=== PATIENT | male | born 1955 | race Caucasian/White ===

== ENCOUNTER 2017-06-05 10:56 | Inpatient (IN) | payer OTHER, MEDICARE ==
[~2017-06-05] VITALS: Ht 185.4 cm; Wt 99.0 kg
[2017-06-05] MEDS ORDERED: SIMV40TA2 PO (11:19)
[2017-06-05] MEDS ORDERED: ZIPR80CA12 PO (11:19)
[2017-06-05] MEDS ORDERED: GABA-283 PO (11:19)
[2017-06-05] MEDS ORDERED: OXCA300S3 PO (11:19)
[2017-06-05] MEDS ORDERED: BENZ0.5T PO (11:19)
[2017-06-05] MEDS ORDERED: QUET1TAB9 PO (11:19)
[2017-06-05] MEDS ORDERED: QUET1TAB10 PO (11:19)
[2017-06-05] MEDS ORDERED: DOCQ100C PO (11:19)
[2017-06-05 13:13] LABS: MEAN CORPUSCULAR HEMOGLOBIN 31.4 pg (27.0-33.0); MEAN CORPUSCULAR HGB CONC 33.9 g/dl (32.0-36.5); MEAN CORPUSCULAR VOLUME 92.7 fl (80.0-96.0); PLATELET COUNT, AUTOMATED 223 10^3/uL (150-450); WHITE BLOOD COUNT 7.8 10^3/uL (4.0-10.0)
[2017-06-05 13:40] LABS: ALBUMIN/GLOBULIN RATIO 1.11 (1.00-1.93); ALKALINE PHOSPHATASE 97 U/L (45-117); ALT/SGPT 37 U/L (12-78); ANION GAP 3 MEQ/L (8-16); AST/SGOT 26 U/L (7-37); BILIRUBIN,DIRECT 0.2 MG/DL (0.0-0.2); BILIRUBIN,TOTAL 0.4 MG/DL (0.2-1.0); BLOOD UREA NITROGEN 12 MG/DL (7-18); CALCIUM LEVEL 9.4 MG/DL (8.8-10.2); CARBON DIOXIDE LEVEL 32 MEQ/L (21-32); CHLORIDE LEVEL 104 MEQ/L (98-107); CREATININE FOR GFR 0.92 MG/DL (0.70-1.30); GLOMERULAR FILTRATION RATE > 60.0 (>49); GLUCOSE, FASTING 83 MG/DL (80-110); POTASSIUM SERUM 4.3 MEQ/L (3.5-5.1); SODIUM LEVEL 139 MEQ/L (136-145); TOTAL PROTEIN 7.6 GM/DL (6.4-8.2)
[2017-06-05 13:51] LABS: METHADONE URINE NEGATIVE (NEGATIVE)
[2017-06-05] MEDS: ZIPRASIDONE 80 MG CAP (GEODON) PO SCH (18:00)
[2017-06-05 21:09] VITALS: BP_SYST 131
[2017-06-06] MEDS ORDERED: MAALOX 30 ML SUSP *UDC PO PRN (00:45)
[2017-06-06] MEDS ORDERED: LORazepam 0.5 MG TAB PO PRN (00:45)
[2017-06-06] MEDS ORDERED: ACETAMINOPHEN TAB 650MG DOSE (2X325MG) PO PRN (00:45)
[2017-06-06] MEDS ORDERED: MOM 30ML SUSPENSION UDC PO PRN (00:45)
[2017-06-06] MEDS: ZIPRASIDONE 80 MG CAP (GEODON) PO SCH (01:17)
[2017-06-06] MEDS: SIMVASTATIN 20 MG TAB PO SCH ×2 (01:18→20:46)
[2017-06-06] MEDS: DOCUSATE SODIUM 100 MG CAP PO SCH ×3 (01:18→20:45)
[2017-06-06] MEDS: OXcarbazepine 300 MG TAB PO SCH ×3 (01:18→20:46)
[2017-06-06] MEDS: QUEtiapine FUMARATE 100 MG TAB PO SCH ×2 (01:18→20:46)
[2017-06-06] MEDS: BENZTROPINE 0.5 MG TAB PO SCH ×3 (01:18→20:46)
[2017-06-06] MEDS: GABAPENTIN 300 MG CAP PO SCH ×2 (01:18→20:46)
[2017-06-06 06:28] VITALS: BP 113/67
--- NOTE | 2017-06-06 09:00 | HPEPDOC ---
[facility] Medical History & Physical Date of Admission Jun 05, 2017 History and Physical PCP: Dr Wally Bob. ATTENDING: Dr. Yeyo Peña HPI: 61yoM admitted to [facility] for schizophrenia, being medically examined today. Patient verbalizes no acute medical complaints today. He shouldn't states he has chronic low back pain which has been controlled however repeatedly states he is currently sleeping on the "wrong mattress". The patient states he is here from [place] visiting family and has been here one to 2 days. The patient has a difficult time answering questions with rapid and tangential speech. Patient states he takes Trileptal for mood. Denies any fevers, chills, weakness, fatigue, SAGE, CP, SOB, cough, palpitations, abdominal pain, N/V/D or changes in bowel or bladder habits. PMHx: Schizophrenia Anxiety Depression Dyslipidemia Chronic low back pain Chronic constipation PSHX: Tonsillectomy Colonoscopy SOCHX: Resides in: [place] Marital Status: Single Kids: None Employment: Unemployed Tobacco use: Denies ETOH: Denies Illicit Drugs: Denies IV Drug Use: Denies Tattoos done unprofessionally: Denies FAMHX: Mother: , renal failure Father: , unknown Siblings: One brother homicide. One sister uterine cancer Children: None ROS: As noted in HPI, otherwise 11pt ROS of systems reviewed and unremarkable. PE: GEN: 61 yoM, appears stated age. Well-nourished, well developed. No acute distress. Alert and oriented x 3. Rapid, pressured, tangential speech, sexually preoccupied. HEENT: Normocephalic, atraumatic. Pupils are equal, round, and reactive to light. Extraocular movements are intact. No nystagmus appreciated. Sclera are nonicteric. Conjunctiva without injection. Nose midline. Nasal turbinates without bogginess. EACs both patent BL. TMs both visualized and licona with good cone of light, no bulging or erythema. No facial asymmetry. Moist mucous membranes. Wearing dentures. Pharynx pink and moist, no cobblestoning. Neck supple, trachea midline. No lymphadenopathy or thyromegaly appreciated. CHEST: Regular rate and rhythm, +S1, +S2 LUNGS: Clear to auscultation bilaterally. No wheezes, rales, or rhonchi. Breathing appears symmetric and easy. Patient is speaking in full sentences. No accessory muscle use. ABD: Round, soft, non-tender, non-distended. +Bowel sounds throughout. No rebound or guarding. No costovertebral angle tenderness. EXT: Pulses 2+ bilaterally dorsalis pedis and radial. No lower extremity edema appreciated. SKIN: [place], dry, warm. Capillary refill <2sec. No rashes. NEURO: Alert and oriented x 3. Cranial nerves III-XII are intact. No focal deficits appreciated. EKG: pending. A&P: 61yoM admitted to [facility] for schizophrenia 1. Psych. Plan per Psychiatry. Obtain baseline EKG to assure the safety of psychiatric medications as they can prolong the QT interval. 2. Dyslipidemia. Continue Zocor 20 mg daily. 3. Chronic pain/chronic low back pain. Patient states his pain is controlled. Continue gabapentin 300 mg at bedtime. Tylenol 650 mg every 6 hours as needed. 4. Follow up with PCP on discharge. 5. Chronic constipation. Continue Colace 100 mg by mouth daily. 6. Staff member Da present throughout exam. Vital Signs Vital Signs Date Time Temp Pulse Resp B/P (MAP) Pulse Ox O2 Delivery O2 Flow Rate FiO2 06/06/17 06:28 99.9 81 16 113/67 (82) 06/05/17 21:09 94 Room Air Laboratory Data Labs 24H Laboratory Tests 2 06/05/17 12:55: Nucleated Red Blood Cells % (auto) 0.0, Anion Gap 3L, Glomerular Filtration Rate > 60.0, Calcium Level 9.4, Aspartate Amino Transf (AST/SGOT) 26, Alanine Aminotransferase (ALT/SGPT) 37, Alkaline Phosphatase 97, Total Bilirubin 0.4, Direct Bilirubin 0.2, Total Protein 7.6, Albumin 4.0, Albumin/Globulin Ratio 1.11, Thyroid Stimulating Hormone (TSH) 0.869, Salicylates Level < 1.7L, Urine Amphetamines Screen NEGATIVE, Urine Benzodiazepines Screen NEGATIVE, Urine Opiates Screen NEGATIVE, Urine Methadone Screen NEGATIVE, Acetaminophen Level < 2.0L, Urine Barbiturates Screen NEGATIVE, Urine Phencyclidine Screen NEGATIVE, Urine Cocaine Metabolite Screen NEGATIVE, Urine Cannabinoids Screen NEGATIVE, Ethyl Alcohol Level < 0.003 CBC/BMP Laboratory Tests 06/05/17 12:55 Red Blood Count 5.06, Mean Corpuscular Volume 92.7, Mean Corpuscular Hemoglobin 31.4, Mean Corpuscular Hemoglobin Concent 33.9, Red Cell Distribution Width 13.0 Home Medications Scheduled (Oxcarbazepine) 300 Mg/5 Ml Skyla, 600 MG PO BID for MOOD (Docqlace) 100 Mg Cap, 100 MG PO DAILY Benztropine Mesylate (Benztropine Mesylate) 0.5 Mg Tab, 0.5 MG PO BID Gabapentin (Gabapentin) 400 Mg Cap, 300 MG PO DAILY Quetiapine Fumerate (Quetiapine Fumarate) 300 Mg Tab, 300 MG PO QHS for MOOD Simvastatin - High Dose (Simvastatin) 40 Mg Tab, 20 MG PO DAILY Ziprasidone Hydrochloride (Ziprasidone HCl) 80 Mg Cap, 80 MG PO DAILY Allergies Coded Allergies: No Known Allergies (Unverified , 06/05/17) Yuki Miller Jun 06, 2017 09:00
[2017-06-06 12:01] VITALS: BP 139/76
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
[2017-06-06 18:00] VITALS: BP 145/77
[2017-06-06] MEDS: PALIPERIDONE 3 MG ER TAB (INVEGA) PO SCH (20:46)
[2017-06-07 06:32] VITALS: BP 122/72
[2017-06-07] MEDS: BENZTROPINE 0.5 MG TAB PO SCH ×2 (10:34→20:56)
[2017-06-07] MEDS: PALIPERIDONE 3 MG ER TAB (INVEGA) PO SCH (10:34)
[2017-06-07] MEDS: OXcarbazepine 300 MG TAB PO SCH ×2 (10:34→20:58)
[2017-06-07] MEDS: DOCUSATE SODIUM 100 MG CAP PO SCH ×2 (10:34→20:57)
--- NOTE | 2017-06-07 15:14 | MHIPNPDOC ---
[facility] Progress Note Progress Note DATE OF SERVICE: 06/07/17 HISTORY: Patient reports that he has been having problems with one of his neighbors who is a [place] , who complained to his landlord and he was asked to leave his apartment. VITAL SIGNS: See below. NEW TEST RESULTS: None CURRENT MEDICATIONS: See below. MENTAL STATUS EXAMINATION: General appearance: Patient is a 61-year old male, who is alert, cooperative, with fair eye contact, good hygiene and grooming Speech: A little less tangential than yesterday Thought processes: Disorganized. Thought content: Paranoid delusions and persecutory delusions,. he says the patients are talking about him. Abstract reasoning and computation: Due to altered mental status it was not done at this time. Description of associations: Loose. Description of abnormal or psychotic thoughts: Paranoid and persecutory delusions, denies suicidal ideation, denies homicidal ideation and denies auditory and visual hallucinations. Judgment: Poor. Insight: Poor. Orientation: Oriented 3. Recent and remote memory: Intact. Attention span and concentration: Fair. Fund of knowledge: Not assessed at this time Mood: Anxious Affect: Anxious. DIAGNOSES: 1. Paranoid schizophrenia ASSESSMENT: Patient says he slept well, has good appetite, is slightly less paranoid and suspicious than yesterday. He is still paranoid, he thinks that people hate him and that is why we are giving him medications at day and night, because he receives it twice a day. 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 MANAGEMENT PLAN: Will continue on the same treatment plan. TIME SPENT: 20 minutes. Vital Signs Vital Signs Date Time Temp Pulse Resp B/P (MAP) Pulse Ox O2 Delivery O2 Flow Rate FiO2 06/07/17 06:32 98.3 71 20 122/72 (89) 06/05/17 21:09 94 Room Air Current Medications Current Medications Acetaminophen (Tylenol Tab) 650 mg Q6HP PRN PO HEADACHE or DISCOMFORT; Start 06/06/17 at 00:45; Stop 07/06/17 at 00:44 Al Hydrox/Mg Hydrox/Simethicone (Mylanta) 30 ml Q4HP PRN PO HEARTBURN/ INDIGESTION; Start 06/06/17 at 00:45; Stop 07/06/17 at 00:44 Benztropine Mesylate (Cogentin) 0.5 mg BID PO Last administered on 06/07/17 10 :34; Start 06/05/17 at 21:00; Stop 07/05/17 at 20:59 Docusate Sodium (Colace) 100 mg BID PO Last administered on 06/07/17 10:34; Start 06/05/17 at 21:00; Stop 07/05/17 at 20:59 Gabapentin (Neurontin) 300 mg QHS PO Last administered on 06/06/17 20:46; Start 06/05/17 at 21:00; Stop 07/05/17 at 20:59 Lorazepam (Ativan) 0.5 mg TIDP PRN PO ANXIETY; Start 06/06/17 at 00:45; Stop 06/13/17 at 00:44 Magnesium Hydroxide (Milk Of Magnesia) 30 ml DAILYPRN PRN PO CONSTIPATION; Start 06/06/17 at 00:45; Stop 07/06/17 at 00:44 Oxcarbazepine (Trileptal) 600 mg BID PO Last administered on 06/07/17 10:34; Start 06/05/17 at 21:00; Stop 07/05/17 at 20:59 Paliperidone (Invega) 3 mg BID PO Last administered on 06/07/17 10:34; Start 06/06/17 at 21:00; Stop 07/06/17 at 20:59 Quetiapine Fumarate (SEROquel) 300 mg QHS PO Last administered on 06/06/17 20: 46; Start 06/05/17 at 21:00; Stop 07/05/17 at 20:59 Simvastatin (Zocor) 20 mg QHS PO Last administered on 06/06/17 20:46; Start 06/05/17 at 21:00; Stop 07/05/17 at 20:59 Ziprasidone (Geodon) 80 mg DAILY@18 PO ; Start 06/05/17 at 18:00; Stop 06/06/17 at 15:26; Status DC Allergies Coded Allergies: No Known Allergies (Unverified , 06/05/17) ANIKET KWAN MD Jun 07, 2017 15:14
[2017-06-07 18:00] VITALS: BP 142/70
--- NOTE | 2017-06-07 20:00 | ECGEPIP ---
Stationary ECG Study [facility] Test Date: 2017-06-06 Pat Name: REX SCHULTZ Department: Room: [place] [address] Gender: M Sustainable Design Coordinator: MADDY : 1955 Requested By: Yuki Miller Order Number: [id number] Reading MD: Stevie Schwab Measurements Intervals [place] Rate: 81 P: 63 MO: 164 QRS: 51 QRSD: 112 T: 51 QT: 349 QTc: 407 Interpretive Statements SINUS RHYTHM MODERATE INTRAVENTRICULAR CONDUCTION DELAY NO PRIOR Electronically Signed On 06-07-2017 20:00:07 EST by Stevie Schwab
[2017-06-07] MEDS: QUEtiapine FUMARATE 100 MG TAB PO SCH (20:57)
[2017-06-07] MEDS: SIMVASTATIN 20 MG TAB PO SCH (20:57)
[2017-06-07] MEDS: GABAPENTIN 300 MG CAP PO SCH (20:58)
[2017-06-07] MEDS ORDERED: PALIPERIDONE 6 MG ER TAB (INVEGA) PO SCH (21:00)
[2017-06-08 06:27] VITALS: BP 124/72
[2017-06-08] MEDS: BENZTROPINE 0.5 MG TAB PO SCH ×2 (09:43→21:15)
[2017-06-08] MEDS: OXcarbazepine 300 MG TAB PO SCH ×2 (09:43→21:16)
[2017-06-08] MEDS: DOCUSATE SODIUM 100 MG CAP PO SCH ×2 (09:43→21:16)
[2017-06-08] MEDS ORDERED: PALIPERIDONE 3 MG ER TAB (INVEGA) PO ONE (11:45)
[2017-06-08 18:00] VITALS: BP 133/79
[2017-06-08] MEDS ORDERED: PALIPERIDONE 6 MG ER TAB (INVEGA) PO SCH (21:00)
[2017-06-08] MEDS: QUEtiapine FUMARATE 100 MG TAB PO SCH (21:16)
[2017-06-08] MEDS: SIMVASTATIN 20 MG TAB PO SCH (21:16)
[2017-06-08] MEDS: GABAPENTIN 300 MG CAP PO SCH (21:16)
[2017-06-09 06:29] VITALS: BP 128/78
[2017-06-09] MEDS: PALIPERIDONE 3 MG ER TAB (INVEGA) PO SCH ×2 (08:51→21:11)
[2017-06-09] MEDS: OXcarbazepine 300 MG TAB PO SCH ×2 (08:51→21:11)
[2017-06-09] MEDS: DOCUSATE SODIUM 100 MG CAP PO SCH ×2 (08:51→21:10)
[2017-06-09] MEDS: BENZTROPINE 0.5 MG TAB PO SCH ×2 (08:51→21:11)
--- NOTE | 2017-06-09 12:52 | MHIPNPDOC ---
[facility] Progress Note Progress Note DATE OF SERVICE: 06/08/17 HISTORY: Patient reports that he has been having problems with one of his neighbors who is a [place] , who complained to his landlord and he was asked to leave his apartment. VITAL SIGNS: See below. NEW TEST RESULTS: None CURRENT MEDICATIONS: See below. MENTAL STATUS EXAMINATION: General appearance: Patient is a 61-year old male, alert, cooperative, fairly groomed, with good hygiene and fair eye contact. Speech: Tangential and circumstantial but less than upon admission Thought processes: Disorganized. Thought content: Paranoid delusions and persecutory delusions. Abstract reasoning and computation: Due to altered mental status it was not done at this time. Description of associations: Loose. Description of abnormal or psychotic thoughts: Paranoid and persecutory delusions, denies suicidal ideation, denies homicidal ideation and denies auditory and visual hallucinations. Judgment: Poor. Insight: Poor. Orientation: Oriented 3. Recent and remote memory: Intact. Attention span and concentration: Fair. Fund of knowledge: Not assessed at this time Mood: Anxious Affect: Anxious. DIAGNOSES: 1. Paranoid schizophrenia ASSESSMENT: Patient complained of receiving 6 mg a day and at night but yesterday he complained of receiving it in split doses (3 mg twice a day). Yesterday he said he didn't like it that way, he never used to take medications during the day, only at bedtime. Then, he added that he knew they were doing this to him, giving all his medications at bedtime because people hated him and he knew staff and patients hated him because they were talking bad things about him. Today he complains of receiving everything at bedtime, will order again today at 3 mgs twice a day in order to make him feel safe. MANAGEMENT PLAN: Will continue on the same treatment plan. TIME SPENT: 20 minutes. Vital Signs Vital Signs Date Time Temp Pulse Resp B/P (MAP) Pulse Ox O2 Delivery O2 Flow Rate FiO2 06/09/17 06:29 97.8 70 18 128/78 (95) 06/08/17 06:27 Room Air 06/05/17 21:09 94 Current Medications Current Medications Acetaminophen (Tylenol Tab) 650 mg Q6HP PRN PO HEADACHE or DISCOMFORT; Start 06/06/17 at 00:45; Stop 07/06/17 at 00:44 Al Hydrox/Mg Hydrox/Simethicone (Mylanta) 30 ml Q4HP PRN PO HEARTBURN/ INDIGESTION; Start 06/06/17 at 00:45; Stop 07/06/17 at 00:44 Benztropine Mesylate (Cogentin) 0.5 mg BID PO Last administered on 06/09/17 08:51; Start 06/05/17 at 21:00; Stop 07/05/17 at 20:59 Docusate Sodium (Colace) 100 mg BID PO Last administered on 06/09/17 08:51; Start 06/05/17 at 21:00; Stop 07/05/17 at 20:59 Gabapentin (Neurontin) 300 mg QHS PO Last administered on 06/08/17 21:16; Start 06/05/17 at 21:00; Stop 07/05/17 at 20:59 Lorazepam (Ativan) 0.5 mg TIDP PRN PO ANXIETY; Start 06/06/17 at 00:45; Stop 06/13/17 at 00:44 Magnesium Hydroxide (Milk Of Magnesia) 30 ml DAILYPRN PRN PO CONSTIPATION; Start 06/06/17 at 00:45; Stop 07/06/17 at 00:44 Oxcarbazepine (Trileptal) 600 mg BID PO Last administered on 06/09/17 08:51; Start 06/05/17 at 21:00; Stop 07/05/17 at 20:59 Paliperidone (Invega) 3 mg BID PO Last administered on 06/07/17 10:34; Start 06/06/17 at 21:00; Stop 06/07/17 at 15:17; Status DC Paliperidone (Invega) 3 mg QAM PO Last administered on 06/09/17 08:51; Start 06/09/17 at 09:00; Stop 07/09/17 at 08:59 Paliperidone (Invega) 3 mg QHS PO Last administered on 06/08/17 21:15; Start 06/08/17 at 21:00; Stop 07/08/17 at 20:59 Paliperidone (Invega) 6 mg QHS PO Last administered on 06/07/17 20:56; Start 06/07/17 at 21:00; Stop 06/08/17 at 11:41; Status DC Quetiapine Fumarate (SEROquel) 300 mg QHS PO Last administered on 06/08/17 21 :16; Start 06/05/17 at 21:00; Stop 07/05/17 at 20:59 Simvastatin (Zocor) 20 mg QHS PO Last administered on 06/08/17t 21:16; Start 06/05/17 at 21:00; Stop 07/05/17 at 20:59 Ziprasidone (Geodon) 80 mg DAILY@18 PO ; Start 06/05/17 at 18:00; Stop 06/06/17 at 15:26; Status DC Allergies Coded Allergies: No Known Allergies (Unverified , 06/05/17) ANIKET KWAN MD Jun 09, 2017 12:52
[2017-06-09] MEDS ORDERED: PALIPERIDONE 3 MG ER TAB (INVEGA) PO SCH (15:29)
[2017-06-09] MEDS: QUEtiapine FUMARATE 100 MG TAB PO SCH (21:10)
[2017-06-09] MEDS: SIMVASTATIN 20 MG TAB PO SCH (21:11)
[2017-06-09] MEDS: GABAPENTIN 300 MG CAP PO SCH (21:11)
--- NOTE | 2017-06-09 21:20 | MHIPN ---
DATE: 06/09/2017 HISTORY: A 61-year-old male admitted to our unit for paranoid ideation. The patient has been diagnosed of paranoid schizophrenia. MEDICATIONS: - Invega 3 mg by mouth every morning and 3 mg by mouth at bedtime - Trileptal 600 mg by mouth twice a day - Cogentin 0.5 mg by mouth twice a day - Seroquel 300 mg by mouth at bedtime - Neurontin 300 mg by mouth at bedtime SUBJECTIVE: "I'm feeling a little better." OBJECTIVE: The patient is in his room most of the time, very little interaction with other patients and staff. The patient appears to be improving, appears to be less paranoid. Denies auditory or visual hallucinations. Denies side effect from the medication. MENTAL STATUS EXAMINATION: The patient is dressed in [facility]. The patient is cooperative, has poor eye contact. Speech is poor. Mood is euthymic. Affect is blunted. Continues to have paranoid delusions. Denies hallucinations. Memory, attention and concentration are fair. The patient is able to contract for safety while in the hospital. Insight and judgment are limited. ASSESSMENT: 1. Paranoid schizophrenia. 2. Paranoid delusions. PLAN: 1. Continue Invega 3 mg by mouth twice a day. 2. Continue Cogentin 0.5 mg by mouth twice a day. 3. Continue Seroquel 300 mg by mouth at bedtime. 4. Continue Trileptal 600 mg by mouth twice a day. 5. Continue Neurontin 300 mg by mouth at bedtime.
[2017-06-10 06:26] VITALS: BP 128/73
[2017-06-10] MEDS: DOCUSATE SODIUM 100 MG CAP PO SCH ×2 (09:04→20:21)
[2017-06-10] MEDS: OXcarbazepine 300 MG TAB PO SCH ×2 (09:04→20:24)
[2017-06-10] MEDS: BENZTROPINE 0.5 MG TAB PO SCH ×2 (09:04→20:22)
[2017-06-10] MEDS: PALIPERIDONE 3 MG ER TAB (INVEGA) PO SCH ×2 (09:05→20:21)
[2017-06-10 18:00] VITALS: BP 134/77
[2017-06-10] MEDS: GABAPENTIN 300 MG CAP PO SCH (20:21)
[2017-06-10] MEDS: SIMVASTATIN 20 MG TAB PO SCH (20:21)
[2017-06-10] MEDS: QUEtiapine FUMARATE 100 MG TAB PO SCH (20:21)
[2017-06-11 06:33] VITALS: BP 150/75
[2017-06-11] MEDS: BENZTROPINE 0.5 MG TAB PO SCH ×2 (08:54→21:32)
[2017-06-11] MEDS: DOCUSATE SODIUM 100 MG CAP PO SCH ×2 (08:54→21:32)
[2017-06-11] MEDS: OXcarbazepine 300 MG TAB PO SCH ×2 (08:54→21:33)
[2017-06-11] MEDS: PALIPERIDONE 3 MG ER TAB (INVEGA) PO SCH (08:54)
[2017-06-11 18:00] VITALS: BP 140/71
--- NOTE | 2017-06-11 20:28 | MHIPNPDOC ---
[facility] Progress Note Progress Note DATE OF SERVICE: 06/11/17 HISTORY: Patient reports that he doesn't like Invega. He says it goes "into his system and finally stays on his head". This chief underwriter discussed with him that the medication is supposed to go into his system, go through his long and eventually reaches brain , that is the purpose of the medication, but he insists he is not doing well and it, he wants Seroquel to be increased because that's the way that "my other doctor used to do it, increase the Seroquel slowly ". Patient was ordered 200 mg of Seroquel 3 times a day and he will be on Abilify 5 mg by mouth daily at bedtime. Even though he doesn't notice the changes he is less tangential and less circumstantial than he when he was admitted and that is because he was using in [place] but he has skipped making excuses as were to take them in the morning or take them at night or that he doesn't want them split doses, the fact is he doesn't want to take the medication. We'll give him a trial on Seroquel and Abilify, hopefully he will accept Abilify. VITAL SIGNS: See below. NEW TEST RESULTS: None CURRENT MEDICATIONS: See below. MENTAL STATUS EXAMINATION: General appearance: Patient is a 61-year old male, alert, cooperative, unhappy with his medications, fairly groomed, fair hygiene, poor eye contact Speech: Less tangential and circumstantial Thought processes: Tangential, irrational Thought content: Paranoid delusions and persecutory delusions. Abstract reasoning and computation: Due to altered mental status it was not done at this time. Description of associations: Loose. Description of abnormal or psychotic thoughts: Paranoid and persecutory delusions, denies suicidal ideation, denies homicidal ideation and denies auditory and visual hallucinations. Judgment: Poor. Insight: Poor. Orientation: Oriented 3. Recent and remote memory: Intact. Attention span and concentration: Fair. Fund of knowledge: Not assessed at this time Mood: Anxious Affect: Anxious. DIAGNOSES: 1. Paranoid schizophrenia ASSESSMENT: Patient continues to complain about in [place], at this time he says he would rather take Seroquel, and increased the dose because that's the medication he has used in the past to stabilize him. He will be started on Seroquel 200 mg 3 times a day and Abilify 5 mg by mouth daily at bedtime. I hope he will accept Abilify.. MANAGEMENT PLAN: Will continue on the same treatment plan. TIME SPENT: 20 minutes. Vital Signs Vital Signs Date Time Temp Pulse Resp B/P (MAP) Pulse Ox O2 Delivery O2 Flow Rate FiO2 06/11/17 18:00 97.3 90 18 140/71 (94) 06/11/17 06:33 Room Air 06/05/17 21:09 94 Current Medications Current Medications Acetaminophen (Tylenol Tab) 650 mg Q6HP PRN PO HEADACHE or DISCOMFORT Last administered on 06/10/17 20:23; Start 06/06/17 at 00:45; Stop 07/06/17 at 00: 44 Al Hydrox/Mg Hydrox/Simethicone (Mylanta) 30 ml Q4HP PRN PO HEARTBURN/ INDIGESTION; Start 06/06/17 at 00:45; Stop 07/06/17 at 00:44 Aripiprazole (AbiLIFY) 5 mg QHS PO ; Start 06/11/17 at 21:00; Stop 07/11/17 at 20:59 Benztropine Mesylate (Cogentin) 0.5 mg BID PO Last administered on 06/11/17 08:54; Start 06/05/17 at 21:00; Stop 07/05/17 at 20:59 Docusate Sodium (Colace) 100 mg BID PO Last administered on 06/11/17 08:54; Start 06/05/17 at 21:00; Stop 07/05/17 at 20:59 Gabapentin (Neurontin) 300 mg QHS PO Last administered on 06/10/17 20:21; Start 06/05/17 at 21:00; Stop 07/05/17 at 20:59 Lorazepam (Ativan) 0.5 mg TIDP PRN PO ANXIETY; Start 06/06/17 at 00:45; Stop 06/13/17 at 00:44 Magnesium Hydroxide (Milk Of Magnesia) 30 ml DAILYPRN PRN PO CONSTIPATION; Start 06/06/17 at 00:45; Stop 07/06/17 at 00:44 Oxcarbazepine (Trileptal) 600 mg BID PO Last administered on 06/11/17 08:54; Start 06/05/17 at 21:00; Stop 07/05/17 at 20:59 Paliperidone (Invega) 3 mg BID PO Last administered on 06/07/17 10:34; Start 06/06/17 at 21:00; Stop 06/07/17 at 15:17; Status DC Paliperidone (Invega) 3 mg QAM PO Last administered on 06/11/17 08:54; Start 06/09/17 at 09:00; Stop 06/11/17 at 17:11; Status DC Paliperidone (Invega) 3 mg QHS PO Last administered on 06/08/17 21:15; Start 06/08/17 at 21:00; Stop 06/09/17 at 15:29; Status DC Paliperidone (Invega) 3 mg QHS PO ; Start 06/09/17 at 15:29; Stop 06/09/17 at 15:30; Status DC Paliperidone (Invega) 3 mg QHS PO Last administered on 06/10/17 20:21; Start 06/09/17 at 21:00; Stop 06/11/17 at 17:11; Status DC Paliperidone (Invega) 6 mg QHS PO Last administered on 06/07/17 20:56; Start 06/07/17 at 21:00; Stop 06/08/17 at 11:41; Status DC Quetiapine Fumarate (SEROquel) 200 mg TID PO ; Start 06/11/17 at 21:00; Stop 07/11/17 at 20:59 Quetiapine Fumarate (SEROquel) 300 mg QHS PO Last administered on 06/10/17 20 :21; Start 06/05/17 at 21:00; Stop 06/11/17 at 17:32; Status DC Simvastatin (Zocor) 20 mg QHS PO Last administered on 06/10/17 20:21; Start 06/05/17 at 21:00; Stop 07/05/17 at 20:59 Ziprasidone (Geodon) 80 mg DAILY@18 PO ; Start 06/05/17 at 18:00; Stop 06/06/17 at 15:26; Status DC Allergies Coded Allergies: No Known Allergies (Unverified , 06/05/17) ANIKET KWAN MD Jun 11, 2017 20:28
[2017-06-11] MEDS: SIMVASTATIN 20 MG TAB PO SCH (21:32)
[2017-06-11] MEDS: QUEtiapine FUMARATE 200 MG TAB PO SCH (21:33)
[2017-06-11] MEDS: GABAPENTIN 300 MG CAP PO SCH (21:33)
[2017-06-12 06:43] VITALS: BP 139/68
[2017-06-12] MEDS: BENZTROPINE 0.5 MG TAB PO SCH ×2 (08:41→20:50)
[2017-06-12] MEDS: DOCUSATE SODIUM 100 MG CAP PO SCH ×2 (08:41→20:50)
[2017-06-12] MEDS: OXcarbazepine 300 MG TAB PO SCH ×2 (08:41→20:50)
[2017-06-12] MEDS: QUEtiapine FUMARATE 200 MG TAB PO SCH ×3 (08:42→20:50)
--- NOTE | 2017-06-12 12:48 | MHIPNPDOC ---
[facility] Progress Note Progress Note DATE OF SERVICE: 06/12/17 HISTORY: Patient comes in today complaining about receiving Seroquel TID, he says he wants it all at once, at bedtime. Discussed with patient medication issues, explained why it's needed to split through the day. He started complaining about his neighbor, the [place] whom he thinks is after him. VITAL SIGNS: See below. NEW TEST RESULTS: None CURRENT MEDICATIONS: See below. MENTAL STATUS EXAMINATION: General appearance: Patient is a 61-year old male, alert, mildly uncooperative, fairly groomed, fair hygiene, poor eye contact Speech: Normal in rate, tone and volume. Thought processes: Less disorganized Thought content: Paranoid delusions and persecutory delusions. Abstract reasoning and computation: Due to altered mental status it was not done at this time. Description of associations: slightly less loose Description of abnormal or psychotic thoughts: Paranoid and persecutory delusions, denies suicidal ideation, denies homicidal ideation and denies auditory and visual hallucinations. Judgment: Poor. Insight: Poor. Orientation: Oriented 3. Recent and remote memory: Intact. Attention span and concentration: Fair. Fund of knowledge: Not assessed at this time Mood: Anxious Affect: Anxious. DIAGNOSES: 1. Paranoid schizophrenia ASSESSMENT: Hopefully after explaining to him why we need to split Seroquel in divided dosages through the day, will help him with his compliance. MANAGEMENT PLAN: Will continue on the same treatment plan. TIME SPENT: 20 minutes. Vital Signs Vital Signs Date Time Temp Pulse Resp B/P (MAP) Pulse Ox O2 Delivery O2 Flow Rate FiO2 06/12/17 06:43 98.5 79 16 139/68 (91) Room Air Current Medications Current Medications Acetaminophen (Tylenol Tab) 650 mg Q6HP PRN PO HEADACHE or DISCOMFORT Last administered on 06/10/17 20:23; Start 06/06/17 at 00:45; Stop 07/06/17 at 00: 44 Al Hydrox/Mg Hydrox/Simethicone (Mylanta) 30 ml Q4HP PRN PO HEARTBURN/ INDIGESTION; Start 06/06/17 at 00:45; Stop 07/06/17 at 00:44 Aripiprazole (AbiLIFY) 5 mg QHS PO Last administered on 06/11/17 21:33; Start 06/11/17 at 21:00; Stop 07/11/17 at 20:59 Benztropine Mesylate (Cogentin) 0.5 mg BID PO Last administered on 06/12/17 08:41; Start 06/05/17 at 21:00; Stop 07/05/17 at 20:59 Docusate Sodium (Colace) 100 mg BID PO Last administered on 06/12/17 08:41; Start 06/05/17 at 21:00; Stop 07/05/17 at 20:59 Gabapentin (Neurontin) 300 mg QHS PO Last administered on 06/11/17 21:33; Start 06/05/17 at 21:00; Stop 07/05/17 at 20:59 Lorazepam (Ativan) 0.5 mg TIDP PRN PO ANXIETY; Start 06/06/17 at 00:45; Stop 06/13/17 at 00:44 Magnesium Hydroxide (Milk Of Magnesia) 30 ml DAILYPRN PRN PO CONSTIPATION; Start 06/06/17 at 00:45; Stop 07/06/17 at 00:44 Oxcarbazepine (Trileptal) 600 mg BID PO Last administered on 06/12/17 08:41; Start 06/05/17 at 21:00; Stop 07/05/17 at 20:59 Paliperidone (Invega) 3 mg BID PO Last administered on 06/07/17 10:34; Start 06/06/17 at 21:00; Stop 06/07/17 at 15:17; Status DC Paliperidone (Invega) 3 mg QAM PO Last administered on 06/11/17 08:54; Start 06/09/17 at 09:00; Stop 06/11/17 at 17:11; Status DC Paliperidone (Invega) 3 mg QHS PO Last administered on 06/08/17 21:15; Start 06/08/17 at 21:00; Stop 06/09/17 at 15:29; Status DC Paliperidone (Invega) 3 mg QHS PO ; Start 06/09/17 at 15:29; Stop 06/09/17 at 15:30; Status DC Paliperidone (Invega) 3 mg QHS PO Last administered on 06/10/17 20:21; Start 06/09/17 at 21:00; Stop 06/11/17 at 17:11; Status DC Paliperidone (Invega) 6 mg QHS PO Last administered on 06/07/17 20:56; Start 06/07/17 at 21:00; Stop 06/08/17 at 11:41; Status DC Quetiapine Fumarate (SEROquel) 200 mg TID PO Last administered on 06/11/17 21 :33; Start 06/11/17 at 21:00; Stop 07/11/17 at 20:59 Quetiapine Fumarate (SEROquel) 300 mg QHS PO Last administered on 06/10/17 20 :21; Start 06/05/17 at 21:00; Stop 06/11/17 at 17:32; Status DC Simvastatin (Zocor) 20 mg QHS PO Last administered on 06/11/17 21:32; Start 06/05/17 at 21:00; Stop 07/05/17 at 20:59 Ziprasidone (Geodon) 80 mg DAILY@18 PO ; Start 06/05/17 at 18:00; Stop 06/06/17 at 15:26; Status DC Allergies Coded Allergies: No Known Allergies (Unverified , 06/05/17) ANIKET KWAN MD Jun 12, 2017 12:48
[2017-06-12 18:14] VITALS: BP 143/80
[2017-06-12] MEDS: GABAPENTIN 300 MG CAP PO SCH (20:50)
[2017-06-12] MEDS: SIMVASTATIN 20 MG TAB PO SCH (20:50)
[2017-06-13 06:21] VITALS: BP 121/70
[2017-06-13] MEDS: QUEtiapine FUMARATE 200 MG TAB PO SCH ×3 (08:24→22:12)
[2017-06-13] MEDS: BENZTROPINE 0.5 MG TAB PO SCH ×2 (08:24→22:11)
[2017-06-13] MEDS: OXcarbazepine 300 MG TAB PO SCH ×2 (08:24→22:11)
[2017-06-13] MEDS: DOCUSATE SODIUM 100 MG CAP PO SCH ×2 (08:24→22:11)
[2017-06-13 18:00] VITALS: BP 142/67
--- NOTE | 2017-06-13 18:13 | MHIPNPDOC ---
[facility] Progress Note Progress Note DATE OF SERVICE: 06/13/17 HISTORY: PATIENT SAYS HE'S DOING WELL ON SEROQUEL, HE SAYS HE REFUSED ABILIFY BECAUSE HE WAS ON IT SEVERAL YEARS AGO AND IT DIDN'T WORK FOR HIM. HE SAYS HE FEELS READY TO LEAVE. VITAL SIGNS: See below. NEW TEST RESULTS: None CURRENT MEDICATIONS: See below. MENTAL STATUS EXAMINATION: General appearance: Patient is a 61-year old male, alert, cooperative, fairly groomed, fair hygiene, with better eye contact eye contact Speech: Normal in rate, tone and volume. Thought processes: More coherent Thought content: Paranoid delusions and persecutory delusions. Abstract reasoning and computation: Due to altered mental status it was not done at this time. Description of associations: slightly less loose Description of abnormal or psychotic thoughts: Paranoid and persecutory delusions, denies suicidal ideation, denies homicidal ideation and denies auditory and visual hallucinations. Judgment: Poor. Insight: Poor. Orientation: Oriented 3. Recent and remote memory: Intact. Attention span and concentration: Fair. Fund of knowledge: Not assessed at this time Mood: Anxious Affect: Anxious. DIAGNOSES: 1. Paranoid schizophrenia ASSESSMENT: Patient is still paranoid, he says he will leave, but not tomorrow, he is making plans to leave and he already has time schedule for the trains and the buses and he keeps thinking he has to arrange for his discharge despite I have told him that Discharge Planners will take care of it. MANAGEMENT PLAN: Plan to discharge him on Sunday, if possible. will d/c Abilify. TIME SPENT:20 minutes Vital Signs Vital Signs Date Time Temp Pulse Resp B/P (MAP) Pulse Ox O2 Delivery O2 Flow Rate FiO2 06/13/17 06:21 97.8 70 18 121/70 (87) Room Air Current Medications Current Medications Acetaminophen (Tylenol Tab) 650 mg Q6HP PRN PO HEADACHE or DISCOMFORT Last administered on 06/10/17t 20:23; Start 06/06/17 at 00:45; Stop 07/06/17 at 00: 44 Al Hydrox/Mg Hydrox/Simethicone (Mylanta) 30 ml Q4HP PRN PO HEARTBURN/ INDIGESTION; Start 06/06/17 at 00:45; Stop 07/06/17 at 00:44 Aripiprazole (AbiLIFY) 5 mg QHS PO Last administered on 06/11/17 21:33; Start 06/11/17 at 21:00; Stop 07/11/17 at 20:59 Benztropine Mesylate (Cogentin) 0.5 mg BID PO Last administered on 06/13/17 08:24; Start 06/05/17 at 21:00; Stop 07/05/17 at 20:59 Docusate Sodium (Colace) 100 mg BID PO Last administered on 06/13/17 08:24; Start 06/05/17 at 21:00; Stop 07/05/17 at 20:59 Gabapentin (Neurontin) 300 mg QHS PO Last administered on 06/12/17 20:50; Start 06/05/17 at 21:00; Stop 07/05/17 at 20:59 Lorazepam (Ativan) 0.5 mg TIDP PRN PO ANXIETY; Start 06/06/17 at 00:45; Stop 06/19/17 at 00:44 Magnesium Hydroxide (Milk Of Magnesia) 30 ml DAILYPRN PRN PO CONSTIPATION; Start 06/06/17 at 00:45; Stop 07/06/17 at 00:44 Oxcarbazepine (Trileptal) 600 mg BID PO Last administered on 06/13/17 08:24; Start 06/05/17 at 21:00; Stop 07/05/17 at 20:59 Paliperidone (Invega) 3 mg BID PO Last administered on 06/07/17 10:34; Start 06/06/17 at 21:00; Stop 06/07/17 at 15:17; Status DC Paliperidone (Invega) 3 mg QAM PO Last administered on 06/11/17 08:54; Start 06/09/17 at 09:00; Stop 06/11/17 at 17:11; Status DC Paliperidone (Invega) 3 mg QHS PO Last administered on 06/08/17 21:15; Start 06/08/17 at 21:00; Stop 06/09/17 at 15:29; Status DC Paliperidone (Invega) 3 mg QHS PO ; Start 06/09/17 at 15:29; Stop 06/09/17 at 15:30; Status DC Paliperidone (Invega) 3 mg QHS PO Last administered on 06/10/17 20:21; Start 06/09/17 at 21:00; Stop 06/11/17 at 17:11; Status DC Paliperidone (Invega) 6 mg QHS PO Last administered on 06/07/17 20:56; Start 06/07/17 at 21:00; Stop 06/08/17 at 11:41; Status DC Quetiapine Fumarate (SEROquel) 200 mg TID PO Last administered on 06/13/17 15 :52; Start 06/11/17 at 21:00; Stop 07/11/17 at 20:59 Quetiapine Fumarate (SEROquel) 300 mg QHS PO Last administered on 06/10/17 20 :21; Start 06/05/17 at 21:00; Stop 06/11/17 at 17:32; Status DC Simvastatin (Zocor) 20 mg QHS PO Last administered on 06/12/17 20:50; Start 06/05/17 at 21:00; Stop 07/05/17 at 20:59 Ziprasidone (Geodon) 80 mg DAILY@18 PO ; Start 06/05/17 at 18:00; Stop 06/06/17 at 15:26; Status DC Allergies Coded Allergies: No Known Allergies (Unverified , 06/05/17) ANIKET KWAN MD Jun 13, 2017 18:13
[2017-06-13] MEDS: SIMVASTATIN 20 MG TAB PO SCH (22:12)
[2017-06-13] MEDS: GABAPENTIN 300 MG CAP PO SCH (22:12)
[2017-06-14 06:58] VITALS: BP 126/75
[2017-06-14] MEDS: BENZTROPINE 0.5 MG TAB PO SCH ×2 (09:13→20:45)
[2017-06-14] MEDS: OXcarbazepine 300 MG TAB PO SCH ×2 (09:13→20:45)
[2017-06-14] MEDS: QUEtiapine FUMARATE 200 MG TAB PO SCH ×3 (09:13→20:45)
[2017-06-14] MEDS: DOCUSATE SODIUM 100 MG CAP PO SCH ×2 (09:13→20:45)
--- NOTE | 2017-06-14 11:50 | MHIPNPDOC ---
[facility] Progress Note Progress Note DATE OF SERVICE: 06/14/17 HISTORY: Patient says he's tired of being locked up, he's becoming more irritable, angrier. he says he slept well, only he wakes up sometimes but he goes back to sleep easily. VITAL SIGNS: See below. NEW TEST RESULTS: None CURRENT MEDICATIONS: See below. MENTAL STATUS EXAMINATION: General appearance: Patient is a 61-year old male, alert, cooperative, fairly groomed, fair hygiene, with better eye contact eye contact Speech: Less tangential, less circumstantial Thought processes: Less disorganized Thought content: Paranoid delusions and persecutory delusions. Abstract reasoning and computation: Due to altered mental status it was not done at this time. Description of associations: slightly less loose Description of abnormal or psychotic thoughts: Paranoid and persecutory delusions, denies suicidal ideation, denies homicidal ideation and denies auditory and visual hallucinations. Judgment: Poor. Insight: Poor. Orientation: Oriented 3. Recent and remote memory: Intact. Attention span and concentration: Fair. Fund of knowledge: Not assessed at this time Mood: Slightly irritable Affect: Slightly irritable DIAGNOSES: 1. Paranoid schizophrenia ASSESSMENT: Patient is less paranoid, less tangential, less disorganized. He still has paranoid delusions, but they are less intense and less frequent. MANAGEMENT PLAN: Plan to discharge him on Sunday, if possible. will d/c Abilify. Vital Signs Vital Signs Date Time Temp Pulse Resp B/P (MAP) Pulse Ox O2 Delivery O2 Flow Rate FiO2 06/14/17 06:58 98.2 72 18 126/75 (92) 06/13/17 06:21 Room Air Current Medications Current Medications Acetaminophen (Tylenol Tab) 650 mg Q6HP PRN PO HEADACHE or DISCOMFORT Last administered on 06/10/17 20:23; Start 06/06/17 at 00:45; Stop 07/06/17 at 00: 44 Al Hydrox/Mg Hydrox/Simethicone (Mylanta) 30 ml Q4HP PRN PO HEARTBURN/ INDIGESTION; Start 06/06/17 at 00:45; Stop 07/06/17 at 00:44 Aripiprazole (AbiLIFY) 5 mg QHS PO Last administered on 06/11/17 21:33; Start 06/11/17 at 21:00; Stop 06/13/17 at 18:14; Status DC Benztropine Mesylate (Cogentin) 0.5 mg BID PO Last administered on 06/14/17 09:13; Start 06/05/17 at 21:00; Stop 07/05/17 at 20:59 Docusate Sodium (Colace) 100 mg BID PO Last administered on 06/14/17 09:13; Start 06/05/17 at 21:00; Stop 07/05/17 at 20:59 Gabapentin (Neurontin) 300 mg QHS PO Last administered on 06/13/17 22:12; Start 06/05/17 at 21:00; Stop 07/05/17 at 20:59 Lorazepam (Ativan) 0.5 mg TIDP PRN PO ANXIETY; Start 06/06/17 at 00:45; Stop 06/19/17 at 00:44 Magnesium Hydroxide (Milk Of Magnesia) 30 ml DAILYPRN PRN PO CONSTIPATION; Start 06/06/17 at 00:45; Stop 07/06/17 at 00:44 Oxcarbazepine (Trileptal) 600 mg BID PO Last administered on 06/14/17 09:13; Start 06/05/17 at 21:00; Stop 07/05/17 at 20:59 Paliperidone (Invega) 3 mg BID PO Last administered on 06/07/17 10:34; Start 06/06/17 at 21:00; Stop 06/07/17 at 15:17; Status DC Paliperidone (Invega) 3 mg QAM PO Last administered on 06/11/17 08:54; Start 06/09/17 at 09:00; Stop 06/11/17 at 17:11; Status DC Paliperidone (Invega) 3 mg QHS PO Last administered on 06/08/17 21:15; Start 06/08/17 at 21:00; Stop 06/09/17 at 15:29; Status DC Paliperidone (Invega) 3 mg QHS PO ; Start 06/09/17 at 15:29; Stop 06/09/17 at 15:30; Status DC Paliperidone (Invega) 3 mg QHS PO Last administered on 06/10/17 20:21; Start 06/09/17 at 21:00; Stop 06/11/17 at 17:11; Status DC Paliperidone (Invega) 6 mg QHS PO Last administered on 06/07/17 20:56; Start 06/07/17 at 21:00; Stop 06/08/17 at 11:41; Status DC Quetiapine Fumarate (SEROquel) 200 mg TID PO Last administered on 06/14/17 09 :13; Start 06/11/17 at 21:00; Stop 07/11/17 at 20:59 Quetiapine Fumarate (SEROquel) 300 mg QHS PO Last administered on 06/10/17 20 :21; Start 06/05/17 at 21:00; Stop 06/11/17 at 17:32; Status DC Simvastatin (Zocor) 20 mg QHS PO Last administered on 06/13/17 22:12; Start 06/05/17 at 21:00; Stop 07/05/17 at 20:59 Ziprasidone (Geodon) 80 mg DAILY@18 PO ; Start 06/05/17 at 18:00; Stop 06/06/17 at 15:26; Status DC Allergies Coded Allergies: No Known Allergies (Unverified , 06/05/17) ANIKET KWAN MD Jun 14, 2017 11:49
[2017-06-14 18:00] VITALS: BP 128/71
[2017-06-14] MEDS: GABAPENTIN 300 MG CAP PO SCH (20:45)
[2017-06-14] MEDS: SIMVASTATIN 20 MG TAB PO SCH (20:45)
[2017-06-15 06:44] VITALS: BP 122/71
[2017-06-15] MEDS: QUEtiapine FUMARATE 200 MG TAB PO SCH ×3 (09:33→20:57)
[2017-06-15] MEDS: BENZTROPINE 0.5 MG TAB PO SCH ×2 (09:33→20:57)
[2017-06-15] MEDS: OXcarbazepine 300 MG TAB PO SCH ×2 (09:33→20:58)
[2017-06-15] MEDS: DOCUSATE SODIUM 100 MG CAP PO SCH ×2 (09:33→20:57)
--- NOTE | 2017-06-15 13:29 | MHIPNPDOC ---
[facility] Progress Note Progress Note DATE OF SERVICE: 06/15/17 HISTORY: Patient says he received a different Seroquel, bcause the pills had written numbers on them: 260 and 230. He says those were different medications because he never sleeps well and last night he did. VITAL SIGNS: See below. NEW TEST RESULTS: None CURRENT MEDICATIONS: See below. MENTAL STATUS EXAMINATION: General appearance: Patient is a 61-year old male, alert,suspicious, guarded, cooperative, dressed in hospital clothes with good hygiene and grooming Speech: Normal in rate, tone and volume, less tangential Thought processes: Less disorganized Thought content: Paranoid delusions and persecutory delusions. Abstract reasoning and computation: Due to altered mental status it was not done at this time. Description of associations: Less loose Description of abnormal or psychotic thoughts: Paranoid and persecutory delusions, denies suicidal ideation, denies homicidal ideation and denies auditory and visual hallucinations. Judgment: Poor. Insight: Poor. Orientation: Oriented 3. Recent and remote memory: Intact. Attention span and concentration: Fair. Fund of knowledge: Not assessed at this time Mood: Anxious/irritable Affect: Congruent with mood DIAGNOSES: 1. Paranoid schizophrenia ASSESSMENT: Patient continues to be paranoid abut according to behavioral health case manager, that is his baseline. he hasn't been violent, neither aggressive to anyone. He could leave next week, go back home to [place]. MANAGEMENT PLAN: Plan to discharge him early next week before he becomes more irritable and aggressive. Vital Signs Vital Signs Date Time Temp Pulse Resp B/P (MAP) Pulse Ox O2 Delivery O2 Flow Rate FiO2 06/15/17 06:44 98.0 72 20 122/71 (88) 06/13/17 06:21 Room Air Current Medications Current Medications Acetaminophen (Tylenol Tab) 650 mg Q6HP PRN PO HEADACHE or DISCOMFORT Last administered on 06/10/17 20:23; Start 06/06/17 at 00:45; Stop 07/06/17 at 00: 44 Al Hydrox/Mg Hydrox/Simethicone (Mylanta) 30 ml Q4HP PRN PO HEARTBURN/ INDIGESTION; Start 06/06/17 at 00:45; Stop 07/06/17 at 00:44 Aripiprazole (AbiLIFY) 5 mg QHS PO Last administered on 06/11/17 21:33; Start 06/11/17 at 21:00; Stop 06/13/17 at 18:14; Status DC Benztropine Mesylate (Cogentin) 0.5 mg BID PO Last administered on 06/15/17 09:33; Start 06/05/17 at 21:00; Stop 07/05/17 at 20:59 Docusate Sodium (Colace) 100 mg BID PO Last administered on 06/15/17 09:33; Start 06/05/17 at 21:00; Stop 07/05/17 at 20:59 Gabapentin (Neurontin) 300 mg QHS PO Last administered on 06/14/17 20:45; Start 06/05/17 at 21:00; Stop 07/05/17 at 20:59 Lorazepam (Ativan) 0.5 mg TIDP PRN PO ANXIETY; Start 06/06/17 at 00:45; Stop 06/19/17 at 00:44 Magnesium Hydroxide (Milk Of Magnesia) 30 ml DAILYPRN PRN PO CONSTIPATION; Start 06/06/17 at 00:45; Stop 07/06/17 at 00:44 Oxcarbazepine (Trileptal) 600 mg BID PO Last administered on 06/15/17 09:33; Start 06/05/17 at 21:00; Stop 07/05/17 at 20:59 Paliperidone (Invega) 3 mg BID PO Last administered on 06/07/17 10:34; Start 06/06/17 at 21:00; Stop 06/07/17 at 15:17; Status DC Paliperidone (Invega) 3 mg QAM PO Last administered on 06/11/17 08:54; Start 06/09/17 at 09:00; Stop 06/11/17 at 17:11; Status DC Paliperidone (Invega) 3 mg QHS PO Last administered on 06/08/17 21:15; Start 06/08/17 at 21:00; Stop 06/09/17 at 15:29; Status DC Paliperidone (Invega) 3 mg QHS PO ; Start 06/09/17 at 15:29; Stop 06/09/17 at 15:30; Status DC Paliperidone (Invega) 3 mg QHS PO Last administered on 06/10/17 20:21; Start 06/09/17 at 21:00; Stop 06/11/17 at 17:11; Status DC Paliperidone (Invega) 6 mg QHS PO Last administered on 06/07/17 20:56; Start 06/07/17 at 21:00; Stop 06/08/17 at 11:41; Status DC Quetiapine Fumarate (SEROquel) 200 mg TID PO Last administered on 06/15/17 09 :33; Start 06/11/17 at 21:00; Stop 07/11/17 at 20:59 Quetiapine Fumarate (SEROquel) 300 mg QHS PO Last administered on 06/10/17 20 :21; Start 06/05/17 at 21:00; Stop 06/11/17 at 17:32; Status DC Simvastatin (Zocor) 20 mg QHS PO Last administered on 06/14/17 20:45; Start 06/05/17 at 21:00; Stop 07/05/17 at 20:59 Ziprasidone (Geodon) 80 mg DAILY@18 PO ; Start 06/05/17 at 18:00; Stop 06/06/17 at 15:26; Status DC Allergies Coded Allergies: No Known Allergies (Unverified , 06/05/17) ANIKET KWAN MD Jun 15, 2017 13:29
[2017-06-15 18:22] VITALS: BP 136/67
[2017-06-15] MEDS: SIMVASTATIN 20 MG TAB PO SCH (20:57)
[2017-06-15] MEDS: GABAPENTIN 300 MG CAP PO SCH (20:57)
[2017-06-16 06:39] VITALS: BP 126/74
[2017-06-16] MEDS: DOCUSATE SODIUM 100 MG CAP PO SCH ×2 (08:34→21:09)
[2017-06-16] MEDS: QUEtiapine FUMARATE 200 MG TAB PO SCH ×3 (08:34→21:09)
[2017-06-16] MEDS: BENZTROPINE 0.5 MG TAB PO SCH ×2 (08:34→21:09)
[2017-06-16] MEDS: OXcarbazepine 300 MG TAB PO SCH ×2 (08:34→21:08)
[2017-06-16 18:00] VITALS: BP 131/70
[2017-06-16] MEDS: SIMVASTATIN 20 MG TAB PO SCH (21:08)
[2017-06-16] MEDS: GABAPENTIN 300 MG CAP PO SCH (21:09)
[2017-06-17 06:51] VITALS: BP 141/73
[2017-06-17] MEDS: OXcarbazepine 300 MG TAB PO SCH ×2 (08:52→21:40)
[2017-06-17] MEDS: BENZTROPINE 0.5 MG TAB PO SCH ×2 (08:52→21:40)
[2017-06-17] MEDS: DOCUSATE SODIUM 100 MG CAP PO SCH ×2 (08:52→21:39)
[2017-06-17] MEDS: QUEtiapine FUMARATE 200 MG TAB PO SCH ×3 (08:52→21:39)
[2017-06-17 18:00] VITALS: BP 150/73
[2017-06-17] MEDS: GABAPENTIN 300 MG CAP PO SCH (21:40)
[2017-06-17] MEDS: SIMVASTATIN 20 MG TAB PO SCH (21:40)
[2017-06-18 06:00] VITALS: BP 112/68
[2017-06-18] MEDS: DOCUSATE SODIUM 100 MG CAP PO SCH ×2 (08:22→21:50)
[2017-06-18] MEDS: BENZTROPINE 0.5 MG TAB PO SCH ×2 (08:22→21:50)
[2017-06-18] MEDS: OXcarbazepine 300 MG TAB PO SCH ×2 (08:22→21:50)
[2017-06-18] MEDS: QUEtiapine FUMARATE 200 MG TAB PO SCH ×3 (08:22→21:50)
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
[2017-06-18 18:00] VITALS: BP 160/80
[2017-06-18] MEDS: GABAPENTIN 300 MG CAP PO SCH (21:50)
[2017-06-18] MEDS: SIMVASTATIN 20 MG TAB PO SCH (21:50)
[2017-06-19 06:34] VITALS: BP 141/76
[2017-06-19] MEDS: BENZTROPINE 0.5 MG TAB PO SCH (07:49)
[2017-06-19] MEDS: DOCUSATE SODIUM 100 MG CAP PO SCH (07:50)
[2017-06-19] MEDS: QUEtiapine FUMARATE 200 MG TAB PO SCH (07:50)
[2017-06-19] MEDS: OXcarbazepine 300 MG TAB PO SCH (07:50)
[2017-06-19] MEDS ORDERED: QUET1TAB9 PO (08:34)
[2017-06-19] MEDS ORDERED: OXCA300T PO (08:34)
[2017-06-19] MEDS ORDERED: GABA-282 PO (08:34)
[2017-06-19] MEDS ORDERED: BENZ0.5T PO (08:34)
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
== END 2017-06-19 09:00 | disposition home or self-care (01) | DRG 750 ==
LOC: M ED 10:56 → M ED INP 19:38 → M PSY 21:01
PROVIDERS: ADMIT Psychiatry & Neurology Psychiatry; ATTEND Psychiatry & Neurology Psychiatry
DX: F20.0 Paranoid schizophrenia (principal); M54.5 Low back pain; E78.5 Hyperlipidemia, unspecified; K59.00 Constipation, unspecified; F41.9 Anxiety disorder, unspecified; F32.9 Major depressive disorder, single episode, unspecified; Z91.19 Patient's noncompliance with other medical treatment and regimen